=== PATIENT | male | born 1955 | race Hispanic/Latino ===

== ENCOUNTER 2024-11-26 06:32 | Day surgery (SDC) | payer BC ==
[~2024-11-26] VITALS: Ht 172.7 cm; Wt 93.0 kg
[2024-11-26] VITALS (11 sets, daily range): BP systolic 102–125; BP diastolic 64–81; PULSE 81–113; RESP 13–20; TEMP 97.4–98.4
[~2024-11-26 06:32] MED LIST: ERGO500093 PO; FURO20TA4 PO; PROP10TA10 PO; REPATHA SQ; SEMA1PEN5 SQ; SPIR50TA5 PO
[2024-11-26] MEDS: 0.9%NACL 1000ML 1,000 ML IV ONE (07:43)
[2024-11-26] MEDS ORDERED: LIDOCAINE HCL 1% 20 ML VIAL ONE (08:53)
[2024-11-26] MEDS ORDERED: proPOFol 10 MG/ML 20ML VIAL IV ONE (08:53)
--- NOTE | 2024-11-26 10:14 | NUR ---
Full and complete Discharge Instructions given to Patient and Family both verbally and in writing.. All questions answered.Voiced understanding to GI procedure precautions and Follow Up. PIV removed with catheter tip intact. Denies c/o pain or discomfort. W/C to POV with Family to home
== END 2024-11-26 10:10 | disposition home or self-care (01) ==
LOC: DAH 06:32 → ENDO 06:32
PROVIDERS: ATTEND Internal Medicine Gastroenterology
DX: K70.30 Alcoholic cirrhosis of liver without ascites (principal); K31.89 Other diseases of stomach and duodenum; R93.2 Abnormal findings on diagnostic imaging of liver and biliary tract; K21.00 Gastro-esophageal reflux disease with esophagitis, without bleeding; I85.10 Secondary esophageal varices without bleeding; E11.9 Type 2 diabetes mellitus without complications; K29.70 Gastritis, unspecified, without bleeding; M19.90 Unspecified osteoarthritis, unspecified site; E66.9 Obesity, unspecified; Z79.899 Other long term (current) drug therapy
CPT/HCPCS: 43239; J7030; J2704; A4620; A4215 ×2; A4223; A4222; A4221; A4663; A4606; J3490